=== PATIENT | female | born 1950 | race Two or more races ===

== ENCOUNTER 2023-06-20 11:27 | Emergency (ER) | payer OTHER, BC ==
[~2023-06-20] VITALS: Ht 162.6 cm; Wt 95.3 kg
[2023-06-20 12:27] LABS: HEMATOCRIT 41.3 % (36.0-45.00); HEMOGLOBIN 14.3 g/dL (12.0-15.00); MEAN CELL VOLUME 95.3 fL (80.00-100.00); MEAN CORPUSCULAR HEMOGLOBIN 33.1 pg (27.00-32.0); MEAN CORPUSCULAR HGB CONC 34.7 g/dl (32.0-36.0); PLATELET COUNT 197 K/uL (150-450); RED BLOOD COUNT 4.33 M/uL (4.00-6.00); RED CELL DISTRIBUTION WIDTH 15.1 % (11.5-14.5)
== END 2023-06-20 15:50 | disposition home or self-care (01) ==
LOC: ER 11:27
PROVIDERS: General Practice
DX: S80.11XA Contusion of right lower leg, initial encounter (principal); X58.XXXA Exposure to other specified factors, initial encounter; Y93.89 Activity, other specified; Y92.89 Other specified places as the place of occurrence of the external cause; Y99.8 Other external cause status; L03.115 Cellulitis of right lower limb; I10 Essential (primary) hypertension; E11.9 Type 2 diabetes mellitus without complications; Z88.5 Allergy status to narcotic agent
CPT/HCPCS: 36415; 73590; 96365; 96372; 99283; J0696; J3490